=== PATIENT | male | born 1950 | race Caucasian/White ===

== ENCOUNTER 2020-01-24 08:08 | Day surgery (SDC) | payer OTHER ==
[~2020-01-24 08:08] MED LIST: ALBU2.5V5 INH; ELIQUIS5 MG PO; FLUT1DIS5 INH; FOLIC D3 94.381 EACH PO; METO25ER PO; OMEGA-3 FISH O1 EAC6 PO; Prinivil10 MG PO; QUININE SULFAT PO; Triamcinolone A15 GM TP
[2020-01-24] MEDS ORDERED: METO50ER PO (08:41)
--- NOTE | 2020-01-24 09:29 | NUR ---
PROCEDURE RESCHEDULED DR. ESTEBAN IN TO SPEAK WITH PT. PT WAS TOLD BY DR. GINA STATED "HE ASKED THE OFFICE LADIES AT DR. PRIDE'S OFFICE IF HE SHOULD HOLD THE ELIQUIS. THEIR REPLY WAS DO NOT HOLD ANY MEDICAITONS." THE PATIENTS PROCEDURE HAS BEED RESCHEDULED TO WEDNESDAY. PT WAS EDUCATED ON THE IMPORTANCE OF NOT TAKING ELIQUIS UNTIL FOLLOWING THE PROCEDURE PER INSTRUCTIONS. THERE WAS NOT AN IV [id number] SEDATION WAS GIVEN. PT WAS ABLE TO DRESS SELF AND WALK OUT.
[2020-01-26] MEDS ORDERED: COQ-10100 MG PO (07:09)
== END 2020-02-09 23:20 | disposition home or self-care (01) ==
LOC: MHTC 08:08
DX: I10 Essential (primary) hypertension (principal); I48.20 Chronic atrial fibrillation, unspecified
CPT/HCPCS: J1644; J7030; J7050

== ENCOUNTER 2020-01-26 06:53 | Day surgery (SDC) | payer OTHER ==
[~2020-01-26] VITALS: Ht 182.9 cm; Wt 93.0 kg
[~2020-01-26 06:53] MED LIST changes: +METO50ER PO
[2020-01-26] MEDS ORDERED: COQ-10100 MG PO (07:09)
--- NOTE | 2020-01-26 12:16 | NUR ---
PT DRESSED, IV DC'D INTACT, RECOVERY VSS AND ON RHYTHM STRIP RECORD, TR BAND REMOVED, DRESSING AND SPLINT PLACED TO R WRIST. PT CHOOSES TO AMBULATE OUT ON OWN. NO SEDATION GIVEN DURING PROCEDURE, VERBAL OBTAINED FROM DR PRIDE THAT PATIENT IS OK TO DRIVE HOME TODAY ON HIS OWN. R RADIAL AND BRACHIAL ACCESS SITES STABLE, PT DC'D AT NOON.
== END 2020-01-26 12:00 | disposition home or self-care (01) ==
LOC: MHTC 06:53
PROC: B2111ZZ Fluoroscopy of Multiple Coronary Arteries using Low Osmolar Contrast (ICD-10-PCS; principal; 2020-01-26)
PROC: 4A023N8 Measurement of Cardiac Sampling and Pressure, Bilateral, Percutaneous Approach (ICD-10-PCS; principal; 2020-01-26)
DX: I11.0 Hypertensive heart disease with heart failure (principal); I50.20 Unspecified systolic (congestive) heart failure; I48.91 Unspecified atrial fibrillation; I25.10 Atherosclerotic heart disease of native coronary artery without angina pectoris; I42.8 Other cardiomyopathies; I08.3 Combined rheumatic disorders of mitral, aortic and tricuspid valves; J45.909 Unspecified asthma, uncomplicated; Z79.01 Long term (current) use of anticoagulants; Z79.51 Long term (current) use of inhaled steroids; Z79.899 Other long term (current) drug therapy; Z87.891 Personal history of nicotine dependence
CPT/HCPCS: 85347; 93460; A9270-GY; C1769; C1887; C1894; J1644; J2250; J3010; J7030; Q9967

== ENCOUNTER → 2023-01-08 | Outpatient (CLI) | payer OTHER ==
[~2023-01-08] MED LIST changes: +COQ-10100 MG PO
[2023-01-08 15:54] LABS: CHOL/HDL RATIO 3.2; Cholesterol 172 mg/dL (50-200); HDL Cholesterol 53 mg/dL (>39); LDL/HDL RATIO 1.9; Low Density Lipoprotein Chol 100 mg/dL (0-110); Triglycerides 93 mg/dL (30-160); Very Low Density Lipoprot Chol 18 mg/dL (6-32)
== END | disposition home or self-care (01) ==
LOC: LAB 14:13 → LAB SHORT 14:13
PROVIDERS: Internal Medicine
DX: I25.10 Atherosclerotic heart disease of native coronary artery without angina pectoris (principal); Z12.5 Encounter for screening for malignant neoplasm of prostate
CPT/HCPCS: 80061; G0103

== ENCOUNTER → 2023-01-22 | Outpatient (CLI) | payer OTHER ==
[2023-01-22 18:12] LABS: Calcium, Blood 9.2 mg/dL (8.5-10.1); Creatinine, Blood 1.1 mg/dL (0.60-1.20); Potassium, Blood 5.1 mmol/L (3.5-5.5)
== END ==
LOC: LAB SHORT 14:18 → LAB 14:18
PROVIDERS: Internal Medicine
DX: I50.22 Chronic systolic (congestive) heart failure (principal)
CPT/HCPCS: 80048

== ENCOUNTER → 2023-02-12 | Outpatient (CLI) | payer OTHER ==
[2023-02-12 16:12] LABS: Bun/Creatinine Ratio 30.4 (12.0-20.0); Creatinine, Blood 1.25 mg/dL (0.60-1.20); Potassium, Blood 5.8 mmol/L (3.5-5.5)
== END ==
LOC: LAB 13:05 → LAB SHORT 13:05
PROVIDERS: Internal Medicine
DX: I50.22 Chronic systolic (congestive) heart failure (principal)
CPT/HCPCS: 80048

== ENCOUNTER 2025-01-03 09:33 | Inpatient (IN) | payer OTHER ==
[2025-01-03] VITALS (9 sets, daily range): BP systolic 87–142; BP diastolic 56–114
[~2025-01-03] VITALS: Ht 182.9 cm; Wt 93.7 kg
[2025-01-03] MEDS ORDERED: Diltiazem HCl 5 MG / ML 5ML Vial IV ONE ×2 (09:50→10:50)
[2025-01-03] MEDS ORDERED: NS 1,000 ML IV SCH (09:50)
[2025-01-03 10:09] LABS: BASOPHILS ABSOLUTE AUTO 0.05 K/mm3 (0.00-0.23); BASOPHILS PERCENT AUTO 1 % (0-2); EOSINOPHILS ABSOLUTE AUTO 0.20 K/mm3 (0.00-0.68); EOSINOPHILS PERCENT AUTO 3 % (0-6); Hematocrit 45.0 % (37.0-53.0); Hemoglobin 15.1 g/dL (13.5-17.5); IMMATURE GRAN ABSOLUTE AUTO 0.02 K/mm3 (0.00-0.10); IMMATURE GRAN PERCENT AUTO 0 % (0-1); LYMPHOCYTES ABSOLUTE AUTO 1.50 K/mm3 (0.84-5.20); LYMPHOCYTES PERCENT AUTO 25 % (21-46); MONOCYTES ABSOLUTE AUTO 0.61 K/mm3 (0.16-1.47); MONOCYTES PERCENT AUTO 10 % (4-13); Mean Corpuscular HGB Conc 33.6 g/dL (31.5-36.5); Mean Corpuscular Volume 88 fL (80-100); NEUTROPHILS ABSOLUTE AUTO 3.75 K/mm3 (1.96-9.15); NEUTROPHILS PERCENT AUTO 61 % (41-73); NRBC ABSOLUTE 0.00 K/mm3 (0.00-0.02); NRBC Auto 0.0 /100 WBC (0.0-0.2); Platelet Count 321 K/mm3 (150-400); RDW Coefficient Variation 13.1 % (11.7-14.2); RDW Standard Deviation 42.5 fL (35.1-46.3)
[2025-01-03 10:34] LABS: Alanine Aminotransfer (ALT/SGP 39.0 U/L (12-78); Albumin, Blood 4.0 g/dL (3.4-5.0); Albumin/Globulin Ratio 1.1 (0.8-1.8); Anion Gap 8.0 mmol/L (3-11); Aspartate Aminotrans (AST/SGOT 32.0 U/L (12-37); Bilirubin, Total 0.7 mg/dL (0.1-1.0); Blood Urea Nitrogen 31.0 mg/dL (8-24); CO2, Blood 28.0 mmol/L (21-32); Calcium, Blood 9.5 mg/dL (8.5-10.1); Chloride, Blood 105.0 mmol/L (98-108); Creatinine, Blood 1.11 mg/dL (0.60-1.20); Globulin, Blood 3.7 g/dL (2.2-4.0); Glucose, Blood 99.0 mg/dL (70-99); Potassium, Blood 4.5 mmol/L (3.5-5.5); Sodium, Blood 136.0 mmol/L (136-145); Total Protein, Blood 7.7 g/dL (6.4-8.2)
[2025-01-03] MEDS ORDERED: ATORVASTATIN CA20 MG PO (11:17)
[2025-01-03] MEDS ORDERED: JARDIANCE25 MG PO (11:17)
[2025-01-03] MEDS ORDERED: LISI5 PO (11:18)
[2025-01-03] MEDS ORDERED: HYDCHL25 PO (11:19)
[2025-01-03] MEDS ORDERED: METOPROLOL SUCC25 MG PO (11:19)
[2025-01-03] MEDS ORDERED: Propofol 10mg/ml 20 ml Vial (Procedural) IV ONE (11:50)
[2025-01-03] MEDS ORDERED: ELIQUIS5 M2 PO ×2 (12:14→12:16)
[2025-01-03] MEDS ORDERED: FLU VACC TS2025(65UP)/MF59C/PF 45 MCG/0.5 ML SYRINGE IM SCH (13:55)
[2025-01-03 14:17] LABS: Anti-Xa UFH, PHA Monitoring <0.10 IU/mL; Prothrombin Time Results 10.6 Sec (9.7-11.5)
--- NOTE | 2025-01-03 14:55 | NUR ---
ARRIVAL: PATIENT ARRIVES TO UNIT AND ABLE TO AMBULATE TO NEW BED. VITAL SIGNS STABLE, PATIENT HEART RATE BETWEEN 110-150 OCCASIONALLY. PATIENT IS ALERT AND OREINTED X4 & ABLE TO MAKE NEEDS KNOWN. PATIENT ORIENTED TO ROOM AND CALL LIGHT. PATIENT WALKED TO BATHROOM & TOLERATED IT WELL,HEART RATE IN 140'S DURING THE TRIP. ONCE BACK TO BED HEART RATE WENT BACK DOWN.
[2025-01-03] MEDS ORDERED: Heparin Sodium,Porcine/0.5 NS 500 ML IV SCH (15:00)
--- NOTE | 2025-01-03 15:35 | NUR ---
ROUNDED: SHORT ROUNDED AND NOTIFIED THAT CARDIZEM DRIP WAS RECENTLY STARTED AT 10ML/HR. PLAN WILL BE TO LET IT RUN FOR A BIT SEE HOW THE PATIENT RESPONDS. HEPARIN DRIP STARTED AT 15U/KG WELL.
[2025-01-03] MEDS ORDERED: Albuterol 2.5 MG/3 ML VIAL INH PRN (16:05)
[2025-01-03] MEDS ORDERED: HydrALAZINE HCl 20 MG / ML 1ML Vial IV PRN (16:10)
[2025-01-03] MEDS ORDERED: Formoterol/Mometasone MDI 5/200 mcg 13 GM INH SCH (16:15)
--- NOTE | 2025-01-03 17:10 | NUR ---
SHIFT SUMMARY: PATIENT IS ALERT AND ORIENTED X4 & COOPERATIVE WITH HIS CARE, IS ABLE TO MAKE NEEDS KNOWN & USES CALL LIGHT APPROPRIATELY. PATIENT CAME TO US FROM ED AND CARDIZEM DRIP AND HEPARIN DRIP WAS STARTED. CARDIZEM DRIP IS CURRENTLY AT 10. PATIENT SATTING >92% ON ROOM AIR. ON TELE SHOWING AFIB WITH RATE NOT BETWEEN 80-90'S. PATIENT AGREABLE TO STAYING TONIGHT BUT HOPEFUL WITH THE CARDIZEM DRIP HE WILL BE ABLE TO GO HOME TOMORROW. PATIENT CURRENTLY WAITING IN BED FOR DINNER,CALL LIGHT WITHIN REACH, BED IN LOWEST LOCKED POSITION & STATING NOTHING ELSE IS NEEDED AT THIS TIME.
[2025-01-03] MEDS ORDERED: Clarify Drug Order XX ONE (23:40)
[2025-01-04] VITALS (12 sets, daily range): BP systolic 81–138; BP diastolic 53–127
[2025-01-04 04:21] LABS: BASOPHILS ABSOLUTE AUTO 0.05 K/mm3 (0.00-0.23); BASOPHILS PERCENT AUTO 1 % (0-2); EOSINOPHILS ABSOLUTE AUTO 0.21 K/mm3 (0.00-0.68); EOSINOPHILS PERCENT AUTO 3 % (0-6); Hematocrit 40.9 % (37.0-53.0); Hemoglobin 13.9 g/dL (13.5-17.5); IMMATURE GRAN ABSOLUTE AUTO 0.02 K/mm3 (0.00-0.10); IMMATURE GRAN PERCENT AUTO 0 % (0-1); LYMPHOCYTES ABSOLUTE AUTO 1.60 K/mm3 (0.84-5.20); LYMPHOCYTES PERCENT AUTO 25 % (21-46); MONOCYTES ABSOLUTE AUTO 0.57 K/mm3 (0.16-1.47); MONOCYTES PERCENT AUTO 9 % (4-13); Mean Corpuscular HGB Conc 34.0 g/dL (31.5-36.5); Mean Corpuscular Volume 90 fL (80-100); NEUTROPHILS ABSOLUTE AUTO 3.97 K/mm3 (1.96-9.15); NEUTROPHILS PERCENT AUTO 62 % (41-73); NRBC ABSOLUTE 0.00 K/mm3 (0.00-0.02); NRBC Auto 0.0 /100 WBC (0.0-0.2); Platelet Count 264 K/mm3 (150-400); RDW Coefficient Variation 13.1 % (11.7-14.2); RDW Standard Deviation 43.2 fL (35.1-46.3)
--- NOTE | 2025-01-04 04:33 | NUR ---
SHIFT SUMMARY Pt had a restless night, unable to get much sleep at all. Heparin gtt continues and was therapeutic w/ draws. Cardizem on/off t/out night, HR 60-130s. BP soft with higher doses. Good UOP via urinal.
[2025-01-04 04:52] LABS: Anion Gap 9.0 mmol/L (3-11); Blood Urea Nitrogen 31.0 mg/dL (8-24); CO2, Blood 24.0 mmol/L (21-32); Calcium, Blood 8.7 mg/dL (8.5-10.1); Chloride, Blood 106.0 mmol/L (98-108); Creatinine, Blood 1.09 mg/dL (0.60-1.20); Glucose, Blood 109.0 mg/dL (70-99); Potassium, Blood 4.0 mmol/L (3.5-5.5); Sodium, Blood 135.0 mmol/L (136-145)
[2025-01-04] MEDS ORDERED: Clarify Drug Order XX ONE (05:40)
--- NOTE | 2025-01-04 07:42 | NUR ---
ASSUMPTION NOTE: THIS RN TO ASSUME CARE OF PATIENT. PATIENT AWAKE AND TALKING WITH RESIDENTS AT BEDSIDE. PATIENT NOTIFIED THAT CHANGES IN MEDICATIONS WILL OCCUR HEART RATE CONTINUES TO BE ELEVATED SITTING IN 120'S. PATIENT AGREEABLE TO SWITCH.
[2025-01-04] MEDS ORDERED: Amiodarone HCl 450 MG in NS 250 ML IV SCH (12:35)
--- NOTE | 2025-01-04 13:19 | NUR ---
MD ROUNDED: MD ROUNDED AND SPOKE WITH PATIENT REGARDING STARTING AMIODARONE AND POSSIBLY LOOKING AT A MARCK TOMORROW SOMETIME. PATIENT AWARE AND AGREEABLE. HEPARIN DRIP WILL CONTINUE AND AMIODARONE DRIP WAS STARTED. PATIENT AWARE HE WILL BE NPO AFTER MIDNIHGT.
--- NOTE | 2025-01-04 17:15 | NUR ---
SHIFT SUMMARY: PATIENT IS ALERT AND ORIETNED X4 & COOPERATIVE WITH HIS CARE, IS ABLE TO MAKE NEEDS KNOWN. USES CALL LIGHT APPRORIATELY. SATTING >92% ON ROOM AIR. ON TELE SHOWING AFIB WITH RATE 110-120. AMIODARONE IS RUNNING AT 33.3MG/HR AND HEPARIN CONTINUES TO RUN AT 15U/KG. PATIENT AGREEABLE TO BECOMING NPO AT MIDNIGHT FOR A MARCK IN THE MORNING. PAITNET IS STAND BY ASSSIT TO MANGE LINES/CHORDS. PATIENT WAS ABLE TO GET SOME REST THROUGHOUT THE SHIFT & WAITING FOR DINNER CURRENTLY. HAS CALL LIGHT WITHIN REACH,BED IN LOWEST LOCKED POSITION & STATING NOTHING ELSE IS NEEDED AT THIS TIME.
[2025-01-05] VITALS (34 sets, daily range): BP systolic 83–140; BP diastolic 60–104
[2025-01-05] MEDS ORDERED: Dose Adjust by Pharmacy XX STA (05:27)
[2025-01-05 05:38] LABS: Hematocrit 42.3 % (37.0-53.0); Hemoglobin 14.1 g/dL (13.5-17.5); Platelet Count 267 K/mm3 (150-400)
--- NOTE | 2025-01-05 05:50 | NUR ---
NO ACUTE EVENTS OVERNIGHT. PT CALLED APPROPRIATELY. HEPARIN AND AMIO INFUSING ORDERED. PT'S HEART RATE WAS RUNNING 70s-120s THROUGHOUT THE NIGHT. PT HAS BEEN NPO SINCE MIDNIGHT FOR PENDING MARCK TODAY. USES URINAL APPROPRIATELY. BED LOCKED IN LOWEST POSITION. CALL LIGHT WITHIN REACH.
[2025-01-05] MEDS ORDERED: NS 1,000 ML IV ONE (07:33)
[2025-01-05] MEDS ORDERED: Benzocaine Oral Spray 0.5ML UD ONE (07:42)
--- NOTE | 2025-01-05 08:24 | NUR ---
PT ARRIVED IN PROCEDURE ROOM AT 0745. DR DAVIS IN ROOM TO CONSENT PT. DR SWAIN ARRIVED; TIME OUT COMPLETED AT 0807. PT TOLERATED MARCK/CARDIOVERION WELL. ONE SYNCHRONIZED 50 J SHOCK WAS DELIVERED. PT NOW AWAKE AND DENIES CP. PT NOW ON NASAL CANNULA 2 L.
--- NOTE | 2025-01-05 08:31 | NUR ---
update pt to destin/cardioversion at this time.
--- NOTE | 2025-01-05 08:33 | NUR ---
PT DRANK SIPS OF WATER WITH NO ASPIRATION. PT WILL BE ESCORTED BACK TO PCU 4 VIA WHEELCHAIR.
--- NOTE | 2025-01-05 08:54 | NUR ---
UPDATE PT BACK FROM CARDIOVERSION, TELEMETRY SHOWS SINUS VALENTINE, HR 59. MD SWAIN CALLED W/ ORDERS TO START ELIQUIS 5MG BID, HEP GTT CAN BE TURNED OFF AFTER RECEIVING FIRST DOSE. MD SWAIN ALSO WITH ORDERS TO FINISH AMIO GTT AND START PO AMIO THIS EVENING. CLEARED FOR DISCHARGE THIS EVENING.
--- NOTE | 2025-01-05 12:06 | NUR ---
UPDATE AMIO GTT OFF AT THIS TIME, COMPLETED.
[2025-01-05] MEDS ORDERED: Amiodarone HCl200 MG PO (16:31)
[2025-01-05] MEDS ORDERED: PACERONE100 M1 PO ×2 (16:31→16:32)
[2025-01-05] MEDS ORDERED: ELIQUIS5 M2 PO (16:33)
--- NOTE | 2025-01-05 17:43 | NUR ---
DISCHARGE NOTE: RYNE UNDERSTOOD DISCHARGE INSTRUCTIONS, MEDICATIONS SENT TO [facility]. DENIES CHEST PAIN PRESSURE OR SOB AT REST OR WITH EXERTION, NO ACUTE SIGNS OF DISTRESS, IV'S AND TELE REMOVED BY THIS RN. WRITTEN AND VERBAL INSTRUCTIONS UNDERSTOOD. PATIENT WITH NO COMPLAINT OR QUESTIONS ON DISCHARGE. WHEELED OUT BY PCT
--- NOTE | 2025-01-05 17:48 | NUR ---
DISCHARGE SUMMARY PT A&OOX4, VSS. DENIES PAIN. REMAINS IN SBR/NSR. PO AMIO STARTED PER ORDERS. IVS REMOVED. TELMETRY REMOVED. DISCHARGE MEDICATION SENT TO [facility]. DISCHARGE PAPERWORK REVIEWED W/ PT AND PT VERBALIZED OUTPT FOLLOWUP WITH EP CARDIO FOR ABLASION. PT DRESSED IN HOME CLOTHING. WHEELED TO PRIVATE VEHICLE WITH ALL BELONGINGS.
== END 2025-01-05 17:30 | disposition home or self-care (01) | DRG 310 ==
LOC: ER 09:33 → PCU 09:34
PROVIDERS: Physician Assistant; ADMIT Student in an Organized Health Care Education/Training Program
PROC: 5A2204Z Restoration of Cardiac Rhythm, Single (ICD-10-PCS; principal; 2025-01-05)
PROC: B24BZZ4 Ultrasonography of Heart with Aorta, Transesophageal (ICD-10-PCS; 2025-01-05)
DX: I48.92 Unspecified atrial flutter (principal); I25.10 Atherosclerotic heart disease of native coronary artery without angina pectoris; J45.909 Unspecified asthma, uncomplicated; E78.5 Hyperlipidemia, unspecified; I48.91 Unspecified atrial fibrillation; I95.9 Hypotension, unspecified; Z79.84 Long term (current) use of oral hypoglycemic drugs; Z79.51 Long term (current) use of inhaled steroids; Z87.891 Personal history of nicotine dependence
CPT/HCPCS: 36415; 80048; 80053; 83690; 83735; 84100; 85014; 85018; 85025; 85049; 85520; 85610; 85730; 92960; 93005; 93010; 93312; 93325; 94760; 96361; 96365; 96366; 96374; 96375; 96376; 99285-25; A9270; G0378; J0282; J1644; J2704; J7030; J7050